=== PATIENT | male | born 2000 | race African-American/Black ===

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

== ENCOUNTER 2021-04-16 02:10 | Emergency (ER) | payer OTHER ==
[2021-04-16 02:19] VITALS: BP 135/90; PULSE 87; TEMP 98.9; BMI 22.9
[2021-04-16] MEDS ORDERED: IBUPROFEN 600 MG TABLET (FP) PO ONE (02:29)
== END 2021-04-16 03:22 | disposition home or self-care (01) ==
LOC: JER 02:10
DX: S60.111A Contusion of right thumb with damage to nail, initial encounter (principal)
CPT/HCPCS: 73140-TC-RT-FY; 99283-25

== ENCOUNTER 2022-05-14 12:57 | Emergency (ER) | payer OTHER ==
[2022-05-14 13:22] VITALS: BP 105/58; PULSE 47; TEMP 97.9; BMI 23.7
[2022-05-14] MEDS ORDERED: METHOCARBAMOL 500 MG TABLET PO ONE (14:34)
[2022-05-14] MEDS ORDERED: METHOCARBAMOL 500 MG TABLET ONE (14:45)
[2022-05-14] MEDS ORDERED: KETOROLAC TROMETHAMINE 30 MG/1 ML VIAL IM ONE (16:40)
[2022-05-14] MEDS ORDERED: KETOROLAC TROMETHAMINE 30 MG/1 ML VIAL ONE (16:42)
== END 2022-05-14 16:53 | disposition home or self-care (01) ==
LOC: JERFT 12:57
PROC: 3E0233Z Introduction of Anti-inflammatory into Muscle, Percutaneous Approach (ICD-10-PCS; principal; 2022-05-14)
DX: S09.90XA Unspecified injury of head, initial encounter (principal); S06.0X0A Concussion without loss of consciousness, initial encounter; V49.40XA Driver injured in collision with unspecified motor vehicles in traffic accident, initial encounter
CPT/HCPCS: 70450-TC; 72100-TC-FY; 72125-TC; 99285-25

== ENCOUNTER 2023-02-20 16:46 | Emergency (ER) | payer OTHER ==
[2023-02-20 16:54] VITALS: BMI 54.3
[2023-02-20] MEDS ORDERED: FAMOTIDINE 20 MG/50 ML IVPB 20 MG/50 ML MG IVPB ONE ×2 (17:29→17:40)
[2023-02-20] MEDS ORDERED: LACTATED RINGERS SOLUTION 1000 ML INFUS.BAG IV ONE (17:29)
[2023-02-20] MEDS ORDERED: ONDANSETRON 4 MG/2 ML VIAL IVPUSH ONE (17:29)
[2023-02-20] MEDS ORDERED: ACETAMINOPHEN 1000 MG/100 ML BAG IVPB ONE (17:30)
[2023-02-20] MEDS ORDERED: ONDANSETRON 4 MG/2 ML VIAL ONE (17:40)
[2023-02-20] MEDS ORDERED: ACETAMINOPHEN INJECTION 100 ML IVPB ONE (17:40)
[2023-02-20 17:50] LABS: BASO % 0.4 % (0-2.0); EOS % 0.1 % (0-4.5); HEMATOCRIT 42.2 % (35.4-49); HEMOGLOBIN 14.1 GM/dL (11.7-16.9); MCH 30.4 pg (25.7-33.7); MCHC 33.4 g/dl (32.0-35.9); MEAN CELL VOLUME 91.1 fl (80-96); MEAN PLT VOLUME 9.9 fl (7.5-11.1); NEUT % 51.5 % (42.8-82.8); RBC 4.63 M/mm3 (4.00-5.60); RDW 13.8 % (11.9-15.9); WHITE BLOOD COUNT 3.7 K/mm3 (4.0-10.0)
[2023-02-20 18:09] LABS: PLATELET COUNT 98 10^3/uL (134-434)
[2023-02-20 18:27] LABS: BLOOD UREA NITROGEN 17.9 mg/dL (7-18); CALCIUM 9.9 mg/dL (8.5-10.1)
[2023-02-20 18:28] LABS: ALBUMIN 4.3 g/dl (3.4-5.0)
[2023-02-20 18:30] LABS: CREATININE 1.1 mg/dL (0.55-1.3)
[2023-02-20 18:32] LABS: BILIRUBIN,TOTAL 1.2 mg/dL (0.2-1); TOT PROT 7.4 g/dl (6.4-8.2)
[2023-02-20 19:03] VITALS: BP 124/72; PULSE 85; RESP 19; TEMP 98.1
== END 2023-02-20 19:03 | disposition home or self-care (01) ==
LOC: JERFT 16:46
PROC: 3E033GC Introduction of Other Therapeutic Substance into Peripheral Vein, Percutaneous Approach (ICD-10-PCS; principal; 2023-02-20)
PROC: 3E033GC Introduction of Other Therapeutic Substance into Peripheral Vein, Percutaneous Approach (ICD-10-PCS; 2023-02-20)
PROC: 3E033GC Introduction of Other Therapeutic Substance into Peripheral Vein, Percutaneous Approach (ICD-10-PCS; 2023-02-20)
DX: R11.2 Nausea with vomiting, unspecified (principal); R10.13 Epigastric pain
CPT/HCPCS: 36415; 80053; 83690; 83735; 85025; 99284-25

== ENCOUNTER 2023-07-22 18:07 | Emergency (ER) | payer OTHER ==
[2023-07-22 18:17] VITALS: BP 122/80; PULSE 60; RESP 18; TEMP 97.9; BMI 22.1
[2023-07-22] MEDS ORDERED: SODIUM CHLORIDE 0.9% 500 ML INFUS.BAG IV ONE (19:01)
[2023-07-22] MEDS ORDERED: KETOROLAC TROMETHAMINE 15 MG/ML VIAL IVPUSH ONE (19:02)
[2023-07-22] MEDS ORDERED: KETOROLAC TROMETHAMINE 15 MG/ML VIAL ONE (19:15)
[2023-07-22 19:57] LABS: BASO % 0.5 % (0-2.0); EOS % 0.7 % (0-4.5); HEMATOCRIT 41.4 % (35.4-49); LYMPH % 45.3 % (8-40); MCH 30.5 pg (25.7-33.7); MCHC 33.7 g/dl (32.0-35.9); MEAN CELL VOLUME 90.5 fl (80-96); MEAN PLT VOLUME 10.4 fl (7.5-11.1); MONO % 6.5 % (3.8-10.2); PLATELET COUNT 104 10^3/uL (134-434); RBC 4.58 M/mm3 (4.00-5.60); RDW 13.7 % (11.9-15.9); WHITE BLOOD COUNT 5.1 K/mm3 (4.0-10.0)
[2023-07-22 20:18] LABS: URINE APPEARANCE CLEAR; URINE BILIRUBIN NEGATIVE (NEGATIVE); URINE COLOR YELLOW; URINE GLUCOSE (UA) NEGATIVE (NEGATIVE); URINE KETONE TRACE (NEGATIVE); URINE LEUK ESTERASE NEGATIVE (NEGATIVE); URINE NITRITE NEGATIVE (NEGATIVE); URINE PROTEIN TRACE (NEGATIVE)
[2023-07-22] MEDS ORDERED: ONDANSETRON 4 MG/2 ML VIAL IVPB ONE (20:35)
[2023-07-22 21:15] LABS: POTASSIUM 3.9 mmol/L (3.5-5.1)
[2023-07-22 21:17] LABS: CALCIUM 9.1 mg/dL (8.5-10.1)
[2023-07-22 21:18] LABS: BLOOD UREA NITROGEN 11.6 mg/dL (7-18); MAGNESIUM 2.1 mg/dL (1.8-2.4)
[2023-07-22 21:20] LABS: CREATININE 0.9 mg/dL (0.55-1.3); PHOSPHOROUS 3.5 mg/dL (2.5-4.9)
[2023-07-22 21:22] LABS: BILIRUBIN,TOTAL 1.1 mg/dL (0.2-1); TOT PROT 7.4 g/dl (6.4-8.2)
== END 2023-07-22 23:14 | disposition left against medical advice (07) ==
LOC: JER 18:07
PROC: 3E0333Z Introduction of Anti-inflammatory into Peripheral Vein, Percutaneous Approach (ICD-10-PCS; principal; 2023-07-22)
PROC: 3E033GC Introduction of Other Therapeutic Substance into Peripheral Vein, Percutaneous Approach (ICD-10-PCS; 2023-07-22)
DX: R10.30 Lower abdominal pain, unspecified (principal); R10.2 Pelvic and perineal pain; R11.10 Vomiting, unspecified; R19.7 Diarrhea, unspecified; R10.84 Generalized abdominal pain; K56.7 Ileus, unspecified
CPT/HCPCS: 36415; 74177-TC; 80053; 81003; 83690; 83735; 84100; 85025; 87086; 99285-25; Q9967

== ENCOUNTER 2023-07-24 15:47 | Emergency (ER) | payer OTHER ==
[2023-07-24 15:53] VITALS: BP 130/61; PULSE 56; RESP 18; TEMP 98.7; BMI 22.1
[2023-07-24] MEDS ORDERED: SODIUM CHLORIDE 0.9% 500 ML INFUS.BAG IV ONE (16:55)
[2023-07-24] MEDS ORDERED: ONDANSETRON 4 MG/2 ML VIAL IVPUSH ONE (16:55)
[2023-07-24] MEDS ORDERED: FAMOTIDINE 20 MG/50 ML IVPB 20 MG/50 ML MG IVPB ONE (16:55)
[2023-07-24] MEDS ORDERED: KETOROLAC TROMETHAMINE 30 MG/1 ML VIAL IVPUSH ONE (16:55)
[2023-07-24] MEDS ORDERED: ONDANSETRON 4 MG/2 ML VIAL ONE (17:20)
[2023-07-24] MEDS ORDERED: KETOROLAC TROMETHAMINE 30 MG/1 ML VIAL ONE (17:20)
[2023-07-24] MEDS ORDERED: FAMOTIDINE 10 MG/ML VIAL IVPB ONE (17:21)
[2023-07-24 17:39] LABS: BASO % 0.6 % (0-2.0); EOS % 0.4 % (0-4.5); HEMATOCRIT 39.6 % (35.4-49); HEMOGLOBIN 13.2 GM/dL (11.7-16.9); LYMPH % 41.2 % (8-40); MCH 29.8 pg (25.7-33.7); MCHC 33.2 g/dl (32.0-35.9); MEAN CELL VOLUME 89.9 fl (80-96); MEAN PLT VOLUME 10.6 fl (7.5-11.1); MONO % 5.6 % (3.8-10.2); NEUT % 52.2 % (42.8-82.8); PLATELET COUNT 108 10^3/uL (134-434); RBC 4.41 M/mm3 (4.00-5.60); RDW 13.6 % (11.9-15.9); WHITE BLOOD COUNT 4.4 K/mm3 (4.0-10.0)
[2023-07-24 17:55] LABS: POTASSIUM 3.6 mmol/L (3.5-5.1)
[2023-07-24 17:57] LABS: CALCIUM 8.4 mg/dL (8.5-10.1)
[2023-07-24 17:58] LABS: ALBUMIN 3.6 g/dl (3.4-5.0); BLOOD UREA NITROGEN 8.9 mg/dL (7-18)
[2023-07-24 18:02] LABS: TOT PROT 6.5 g/dl (6.4-8.2)
[2023-07-24 18:03] LABS: BILIRUBIN,TOTAL 1.2 mg/dL (0.2-1)
== END 2023-07-24 19:14 | disposition home or self-care (01) ==
LOC: JER 15:47
PROC: 3E033GC Introduction of Other Therapeutic Substance into Peripheral Vein, Percutaneous Approach (ICD-10-PCS; principal; 2023-07-24)
PROC: 3E033GC Introduction of Other Therapeutic Substance into Peripheral Vein, Percutaneous Approach (ICD-10-PCS; 2023-07-24)
PROC: 3E033GC Introduction of Other Therapeutic Substance into Peripheral Vein, Percutaneous Approach (ICD-10-PCS; 2023-07-24)
DX: R10.31 Right lower quadrant pain (principal); R11.0 Nausea; Z20.822 Contact with and (suspected) exposure to COVID-19
CPT/HCPCS: 0241U-QW; 36415; 80053; 83690; 85025; 99284-25

== ENCOUNTER 2025-01-10 21:18 | Emergency (ER) | payer OTHER ==
[2025-01-10 21:23] VITALS: BP 131/74; PULSE 100; RESP 18; TEMP 98.9; BMI 21.4
== END 2025-01-10 22:29 | disposition short-term general hospital (02) ==
LOC: JERFT 21:18
DX: S01.111A Laceration without foreign body of right eyelid and periocular area, initial encounter (principal); X58.XXXA Exposure to other specified factors, initial encounter; Y93.67 Activity, basketball
CPT/HCPCS: 99285-25

== ENCOUNTER 2025-06-17 22:52 | Emergency (ER) | payer OTHER ==
[2025-06-17 22:59] VITALS: TEMP 98.1; BMI 23.0
[2025-06-17] MEDS ORDERED: KETOROLAC TROMETHAMINE 30 MG/1 ML VIAL ONE (23:26)
[2025-06-17] MEDS: KETOROLAC TROMETHAMINE 30 MG/1 ML VIAL IM ONE (23:30)
[2025-06-18] MEDS ORDERED: CEPHALEXIN MONOHYDRATE 500 MG CAPSULE (UD) ONE (01:38)
[2025-06-18] MEDS: CEPHALEXIN MONOHYDRATE 500 MG CAPSULE (UD) PO ONE (01:41)
[2025-06-18 02:14] VITALS: BP 121/73; PULSE 65; RESP 17
== END 2025-06-18 02:08 | disposition home or self-care (01) ==
LOC: JER 22:52
PROC: 3E0233Z Introduction of Anti-inflammatory into Muscle, Percutaneous Approach (ICD-10-PCS; principal; 2025-06-17)
DX: L03.031 Cellulitis of right toe (principal); L03.032 Cellulitis of left toe; X58.XXXA Exposure to other specified factors, initial encounter; Y93.67 Activity, basketball
CPT/HCPCS: 73630-TC-LT; 73630-TC-RT-FY; 73700-TC-RT; 99285-25